=== PATIENT | male | born 1955 | race Caucasian/White ===

== ENCOUNTER 2019-07-15 13:21 | Emergency (ER) | payer BC ==
[2019-07-15] MEDS ORDERED: Ibuprofen 600 MG Tab PO ONE (14:07)
--- NOTE | 2019-07-15 14:12 | EDM.PDOC ---
ED HPI GENERAL MEDICAL PROBLEM - General Chief Complaint: Bite:Animal, Insect Stated Complaint: DOG BITE ON LEFT HAND Time Seen by Provider: 07/15/19 13:25 Source of Information: Reports: Patient History Limitations: Reports: No Limitations - History of Present Illness INITIAL COMMENTS - FREE TEXT/NARRATIVE: 63 yo male presents to the ER with dog bite. Bite is from his own dog that is up to date on vaccinations. bite occurred 2 days ago. He was seen yesterday in clinic started on Augmentin and has had 2 doses. Last ibuprofen was yesterday. Today he feels the pain and swelling has increased. denies fever, chills or general ill feeling. Left Hand Pain Score (Numeric/FACES): 8 - Related Data Allergies Allergy/AdvReac Type Severity Reaction Status Date / Time No Known Allergies Allergy Verified 07/15/19 13:52 Home Meds: Home Meds Amoxicillin/Potassium Clav [Augmentin 875-125 Tablet] 1 each PO BID 07/15/19 [ History] Past Medical History HEENT History: Reports: Sinusitis Cardiovascular History: Reports: None Respiratory History: Reports: None Gastrointestinal History: Reports: None Genitourinary History: Reports: None Musculoskeletal History: Reports: Fracture Neurological History: Reports: None Psychiatric History: Reports: None Endocrine/Metabolic History: Reports: None Hematologic History: Reports: None Immunologic History: Reports: None Oncologic (Cancer) History: Reports: None Dermatologic History: Reports: None Social & Family History - Caffeine Use Caffeine Use: Reports: Coffee - Recreational Drug Use Recreational Drug Use: No ED ROS GENERAL - Review of Systems Review Of Systems: See Below Constitutional: Denies: Fever, Chills, Malaise, Fatigue Respiratory: Denies: Shortness of Breath, Wheezing Cardiovascular: Denies: Chest Pain Skin: Reports: Wound ED EXAM, ANIMAL BITE - Physical Exam Exam: See Below Exam Limited By: No Limitations General Appearance: Alert, WD/WN, No Apparent Distress Respiratory/Chest: No Respiratory Distress, Lungs Clear. No: Crackles, Rhonchi , Wheezing Cardiovascular: Regular Rate, Rhythm Skin Exam: Other (puncture wound left 2nd digit, moderately swollen very tender to palpation, mild tenderness along the 2nd metacarpel) Course - Vital Signs Last Recorded V/S: Last Vital Signs Temp 36.7 C 07/15/19 13:48 Pulse 66 06/06/20 13:48 Resp 16 07/15/19 13:48 BP 140/76 07/15/19 13:48 Pulse Ox 99 07/15/19 13:48 - Orders/Labs/Meds Orders: Active Orders 24 hr Category Date Time Status cefTRIAXone [Rocephin] Med 07/15/19 14:59 Once 1 gm IM ONETIME ONE Medication Orders Ceftriaxone Sodium (Rocephin) 1 gm IM ONETIME ONE Stop: 07/15/19 15:00 Labs: Laboratory Tests 07/15/19 07/15/19 Range/Units 14:24 14:24 WBC 10.2 (4.5-11.0) K/uL Neut # (Auto) 6.43 C-Reactive Protein 1.02 H (0.0-0.3) mg/dL Meds: Medications Generic Name Dose Route Start Last Admin Trade Name Freq PRN Reason Stop Dose Admin Ceftriaxone Sodium 1 gm 07/15/19 14:59 Rocephin IM 07/15/19 15:00 ONETIME ONE Discontinued Medications Generic Name Dose Route Start Last Admin Trade Name Freq PRN Reason Stop Dose Admin Ibuprofen 600 mg 07/15/19 14:07 07/15/19 14:22 Motrin PO 07/15/19 14:08 600 mg ONETIME ONE Administration - Re-Assessments/Exams Free Text/Narrative Re-Assessment/Exam: 07/15/19 15:00 WBC normal with a slightly elevated CRP. Received 1 Gm Rocephin in ER and will return tomorrow if worsens follow-up Wednesday with primary care for wound check Departure - Departure Time of Disposition: 15:05 Disposition: Home, Self-Care 01 Condition: Good Clinical Impression: Dog bite of hand Qualifiers: Encounter type: subsequent encounter Laterality: left Qualified Code(s): S61.452D - Open bite of left hand, subsequent encounter; W54.0XXD - Bitten by dog, subsequent encounter - Discharge Information *PRESCRIPTION DRUG MONITORING PROGRAM REVIEWED*: Not Applicable *COPY OF PRESCRIPTION DRUG MONITORING REPORT IN PATIENT CHAITANYA: Not Applicable Instructions: Animal Bite, Adult, [id number] Referrals: PCP,None [Primary Care Provider] - Forms: ED Department Discharge Additional Instructions: continue Augmentin until you have completed entire course you received 1 gram of Rocephin in the emergency room today if the wound has worsened tomorrow return to emergency room follow-up on Wednesday with your primary care provider for a wound check pain control Ibuprofen 400-600 mg every 6 hours and ice as much as possible Sepsis Event Note - Evaluation Sepsis Screening Result: No Definite Risk - Focused Exam Vital Signs: Vital Signs Temp Pulse Resp BP Pulse Ox 07/15/19 13:48 36.7 C 66 16 140/76 99 07/15/19 13:46 36.7 C 66 16 140/76 99 Date Exam was Performed: 07/15/19 Time Exam was Performed: 15:00 - My Orders Last 24 Hours: My Active Orders 07/15/19 14:59 cefTRIAXone [Rocephin] 1 gm IM ONETIME ONE - Assessment/Plan Last 24 Hours: My Active Orders 07/15/19 14:59 cefTRIAXone [Rocephin] 1 gm IM ONETIME ONE
[2019-07-15] MEDS ORDERED: cefTRIAXone 1 GM Vial IM ONE (14:59)
== END 2019-07-15 15:28 | disposition home or self-care (01) ==
LOC: JP.ED 13:21
DX: S61.251A Open bite of left index finger without damage to nail, initial encounter (principal); W54.0XXA Bitten by dog, initial encounter
CPT/HCPCS: 36415; 85048; 86140; 96372; 99283; A9270; J0696; J2001